=== PATIENT | female | born 1980 | race Caucasian/White ===

== ENCOUNTER 2016-12-05 06:09 | Day surgery (SDC) | payer OTHER ==
--- NOTE | 2016-11-18 15:54 | GHP ---
[f rep st] PREOP HISTORY AND PHYSICAL DATE OF ADMISSION: 12/05/2016 DATE OF SURGERY: December 05, 2016 at 7:15 a.m. SURGERY TO BE PERFORMED: Laparoscopic left ovarian cystectomy, possible oophorectomy. PREOPERATIVE DIAGNOSIS: Complex left ovarian cyst likely dermoid tumor. HISTORY OF PRESENT ILLNESS: Patient is a 36-year-old, 0, who originally presented in [facility] of 2016 to discuss an 8 month history of infertility. During an infertility workup she had no co mplaints of pain or problems. She had an average cycle that ranged from 23-32 days, average of 26 d ays, had an LH surge on day 15 and had a basic workup that was negative. We reviewed pros and cons, and after basic laboratory workup decided to proceed with Clomid. On ultrasound pre treatment, she was diagnosed with a large adnexal mass. In her left adnexa, there was a large mass that looked to have linear echogenic areas and was heterogeneous in appearance. It measured 8.1 x 6.4 x 8.0 cm, w as difficult to identify any normal ovarian tissue around the mass. The rest of her pelvic ultrasoun d was normal. Her uterus is retroflexed and normal. Right ovary had follicles. There was some sma ll amount of free fluid in the cul-de-sac. Patient reports feeling a mild pressure on the left side, and in her pelvis now that she is aware th at the cyst is there but had no complaints prior to diagnosis. Patient did not conceive in the osman h that she was trying and so we discussed the pros and cons of continuing fertility treatments and a possible with this large ovarian cyst and increased risk of ovarian torsion with the alan ges of just due to the size of the cyst and so I recommended removal prior to more courses and attempted fertility treatments and she is in agreement. PAST OBSTETRICAL HISTORY: Patient has no past obstetrical history. She has never been . GYNECOLOGICAL PROBLEMS: She has no significant gynecological problems except the now known dermoid tumor. She had menarche at age 12. She has an average cycle of 26 days, 5 days of moderate flow with moder ate cramps and a normal luteal phase. She has no history of any abnormal Paps. Last Pap was done w [facility] in September 2016 and it was normal. She has no history of any STDs. PAST MEDICAL HISTORY: Her medical problems include migraines which are rare, approximately a couple times a year, not menstrual related. PAST SURGICAL HISTORY: She has no surgical history. ALLERGIES: No known drug allergies. MEDICATIONS: vitamin and DHA. SOCIAL HISTORY: She denies tobacco, alcohol, 1-2 times a week. No recreational drug use. 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 Has been 7 years. Has moderate caffeine use, [facility] diet and exercise daily. FAMILY HISTORY: Significant for mother who had breast cancer diagnosed at age 62. She is now healt at age 67. Maternal grandfather had bladder cancer. Maternal uncle had pancreatic cancer. Mate rnal grandmother had uterine cancer and melanoma. There is high cholesterol in her family. Her mot her was recently diagnosed with a dermoid tumor as well and underwent a bilateral salpingo-oophorect selena and her pathology was benign. OBJECTIVE: VITAL SIGNS: Her height is 5 feet 9-1/2 inches, weight is 153, blood pressure is 102/62 . GENERAL: She is a well-developed, thin, white female, in no acute distress. LUNGS: Clear to au scultation bilaterally. HEART: Regular rate and rhythm. No murmurs. ABDOMEN: Soft, nontender, n ormal bowel sounds. Mass is not palpated. PELVIC: On pelvic exam, normal external genitalia. Nor mal nulliparous cervix. Uterus is retroflexed and there is a fullness and mass posterior to the lef t of the uterus. Nontender. ASSESSMENT AND PLAN: 36-year-old, 0, with a complex left ovarian mass which is heterogeneou s in consistency and likely to be a dermoid tumor by appearance. She was consented for a laparoscop ic left ovarian cystectomy, possible left oophorectomy. She understood the risks and benefits of th e procedure. The risks including bleeding, infection, damage to organs, uterus, tubes, ovaries, bow el, bladder, nerves, blood vessels, ureters, need for open procedure, need for an oophorectomy or ne ed for additional procedures. She understood these risks and benefits, and agreed to proceed. /[id number]/MODL
[~2016-12-05 06:09] MED LIST: ceFAZolin 2 GM/DEXTROSE 100 ML IV ONE
[2016-12-05] MEDS ORDERED: LIDOCAINE 1% 2 ML INJ ONE (07:00)
[2016-12-05] MEDS ORDERED: LR 1,000 ML IV ONE (07:04)
[2016-12-05] MEDS ORDERED: LIDOCAINE 1% 5 ML SDV ID PRN (07:05)
[2016-12-05] MEDS ORDERED: BUPIVACAINE/EPI 0.5% 30 ML SDV ONE (07:07)
[2016-12-05] MEDS ORDERED: SILVER NITRATE APPLICATOR 1 APPL TP ONE (07:07)
[2016-12-05] MEDS ORDERED: PROPOFOL 200 MG/20 ML VIAL ONE ×3 (07:08→08:43)
[2016-12-05] MEDS ORDERED: fentaNYL 250 MCG/5 ML INJ ONE (07:08)
[2016-12-05] MEDS ORDERED: ROCURONIUM 50 MG/5 ML VIAL ONE (07:08)
[2016-12-05] MEDS ORDERED: SCOPOLAMINE HYDROBROMIDE 1.5 MG PATCH TD ONE (07:22)
[2016-12-05] MEDS ORDERED: MIDAZOLAM 2 MG/2 ML VIAL ONE ×2 (07:23→07:36)
[2016-12-05 07:30] LABS: % IMMATURE GRANULYOCYTES 0.2 % (0.0-1.1); ABSOLUTE IMMATURE GRANULOCYTES 0.01 10^3/uL (0.00-0.10); ADD DIFF? NO; ADD MORPH? NO; ADD SCAN? NO; ATYPICAL LYMPHOCYTE FLAG 0 (0-99); FRAGMENT RBC FLAG 0 (0-99); HEMOGLOBIN 14.4 g/dL (12.6-16.3); LEFT SHIFT FLG 0 (0-99); LIPEMIA HEMOLYSIS FLAG 80 (0-99); MEAN CELL HEMOGLOBIN 30.6 pg (27.9-34.1); MEAN CELL HEMOGLOBIN CONCENTR. 33.5 g/dL (32.4-36.7); MEAN CELL VOLUME 91.5 fL (81.5-99.8); MEAN PLATELET VOLUME 10.7 fL (8.7-11.7); PLATELET CLUMPS FLAG 10 (0-99); PLATELET COUNT 239 10^3/uL (150-400); RED CELL DISTRIBUTION WIDTH 11.8 % (11.5-15.2)
[2016-12-05] MEDS ORDERED: DEXAMETHASONE 4 MG/ML VIAL ONE ×2 (07:34)
[2016-12-05] MEDS ORDERED: PHENYLEPHRINE HCL 100 MCG/ML SYR ONE (07:46)
[2016-12-05] MEDS ORDERED: epHEDrine SULFATE 10 MG/ML SYR ONE (08:03)
[2016-12-05] MEDS ORDERED: ONDANSETRON 4 MG/2 ML VIAL ONE (09:10)
[2016-12-05] MEDS ORDERED: KETOROLAC 30 MG/1 ML SDV ONE (10:08)
--- NOTE | 2016-12-05 10:50 | GOP ---
[f rep st] OPERATIVE REPORT DATE OF OPERATION: 12/05/2016 SURGEON: Rocio Levin MD COMPUTER NETWORK ENGINEER: Zoey Jasso MD ANESTHESIA: General anesthesia. ANESTHESIOLOGIST: González Tucker MD. PREOPERATIVE DIAGNOSIS: Complex left ovarian cyst, likely dermoid cyst. POSTOPERATIVE DIAGNOSIS: Complex left ovarian cyst, likely dermoid cyst. Right pelvic adhesions. PROCEDURE PERFORMED: Laparoscopic left ovarian cystectomy and lysis of adhesions. FINDINGS: SPECIMENS: Pathologic specimen was left ovarian dermoid cyst. ESTIMATED BLOOD LOSS: Less than 50 cc. INDICATIONS: The patient is a 36-year-old 0, who presented in July of 2016 complaining of an 8-month history of infertility. During the workup, she had an ultrasound that revealed an 8.1 x 6.4 x 8.0 cm echogenic large mass on her left ovary, presumed dermoid cyst. Due to the size of t he mass as well as the fact that she wanted to conceive and could have complications from the mass, especially in a future , the recommendation was to proceed with laparoscopic removal. The patient agreed to this and consented. She understood the risks and benefits, the risks including bl eeding, infection, damage to internal organs, uterus, tubes, ovaries, bowel, bladder, nerves, blood vessels, ureters, risk of needing to do an oophorectomy, risk of needing open procedures or addition al procedures. She understood these risks and benefits, and agreed to proceed. DESCRIPTION OF PROCEDURE: The patient was taken to the operating room, where she was placed under g eneral anesthesia without difficulty. She was prepped and draped in the dorsal lithotomy position, and a Salmon catheter was placed in her bladder. An exam under anesthesia revealed a large left adne xal mass and an anteverted, anteflexed uterus. No right adnexal masses. After a WHO time-out was p erformed, an open-sided speculum was placed in the vagina. Single-tooth tenaculum was used to grasp the anterior lip of the cervix. An acorn uterine manipulator was gently placed through the cervica l os and attached to the tenaculum. Attention was then turned to the abdominal portion of the proce dure. After injection of Marcaine, a 5 mm infraumbilical skin incision was made with a scalpel, and a Veress needle was placed in this incision. There was a good drop in peritoneal pressure upon ent ry in the abdominal cavity. A pneumoperitoneum was created with carbon dioxide gas. A 5 mm atrauma tic trocar was then placed through this incision, and the patient was placed in Trendelenburg. Visu alization of the pelvis was performed. There was a normal anteverted, anteflexed uterus, and a larg e left adnexal mass occupying the entire left ovary was visualized. Other than that, her anatomy wa s normal. After injection of Marcaine, a 5 mm skin incision was made in the left lower quadrant, an d a 5 mm atraumatic port was placed under direct visualization, and a 1 cm incision on the right and a 10 mm trocar was placed on that side. The pelvis was carefully inspected. The uterus was normal . The right ovary and tube were normal. The left tube was normal. The left ovary was occupied by the entire cyst. The cyst was reflected, and the ureter was clearly seen in the normal pelvic refle ction. The cyst was then brought above the uterus, and the uterus was placed in the pelvis to help stabilize the ovary for dissection. The monopolar scissors were then used to cauterize into the ova dano cortex and to gently sharply dissect the ovarian cortex from the cyst wall. Upon entry to the cyst wall, there was a copious amount of yellow sebaceous fluid and visualized black hair. The diss ection was then continued along the ovarian cortex until there was a clear demarcation between the o varian cortex and the cyst wall. The ovarian cortex was grasped, and the cyst wall was grasped, and with blunt and sharp dissection, the cyst was removed from the ovarian cyst wall with care to prese rve the infundibulopelvic ligament and a tubal segment on the left lateral side of the ovary. There was a firm mass in the cyst wall that was cauterized and removed with the cyst with the LigaSure. After the entire cyst was removed, it was placed in an EndoCatch bag and removed through the 1 cm po rt. Trocar was then reinserted, and the pelvis was copiously irrigated with warm normal saline to r emove all of the fatty tissue, and small bits of hair were removed under direct visualization until the pelvis was clear. There was a large amount of ovarian cortex left, which was hemostatic. Care was made to inspect the right ovary and tube, which were also hemostatic and normal. There were adh esions visualized toward the colon on the right side, and these were cauterized and cut with the Lig aSure, and good hemostasis was assured. The remainder of the pelvis was inspected, and the liver an d the pelvis were visualized and all found to be normal. The fascia was closed with 0 Vicryl after the trocar was removed on the right lower quadrant, and all the skin incisions were closed with 4-0 Monocryl. The uterine manipulator and tenaculum were removed, and there was hemostasis along the an terior lip of the cervix, and the Salmon catheter was removed in the PACU. The patient tolerated the procedure well. Sponge, lap, needle, and instrument counts were correct x3. The patient went to [facility] room in good condition. IV FLUIDS: 800 cc. URINE OUTPUT: 300 cc. /[id number]/MODL
[2016-12-05] MEDS ORDERED: HYDROCODONE/APAP 5/325 TAB ONE (11:44)
== END 2016-12-05 12:00 | disposition home health service (06) ==
LOC: FSGY 06:09
PROVIDERS: ATTEND Obstetrics & Gynecology
PROC: 0UT14ZZ Resection of Left Ovary, Percutaneous Endoscopic Approach (ICD-10-PCS; principal; 2016-12-05 07:15)
DX: D27.1 Benign neoplasm of left ovary (principal); N73.6 Female pelvic peritoneal adhesions (postinfective)
CPT/HCPCS: J0690; J1100; J1885; J2250; J2370; J2405; J2704; J3010

== ENCOUNTER → 2018-05-30 | Outpatient (CLI) | payer OTHER | LOC: FIMAGING 15:39 | PROVIDERS: ATTEND Obstetrics & Gynecology | DX: Z12.31 Encounter for screening mammogram for malignant neoplasm of breast (principal); Z80.3 Family history of malignant neoplasm of breast ==

== ENCOUNTER → 2018-09-25 | Outpatient (CLI) | payer OTHER | LOC: FIMAGING 14:09 | PROVIDERS: ATTEND Obstetrics & Gynecology | DX: O09.511 Supervision of elderly primigravida, first trimester (principal); O09.811 Supervision of pregnancy resulting from assisted reproductive technology, first trimester; Z3A.12 12 weeks gestation of pregnancy ==

== ENCOUNTER → 2018-11-08 | Outpatient (CLI) | payer OTHER | LOC: FIMAGING 07:16 | PROVIDERS: ATTEND Hospitalist | DX: O09.512 Supervision of elderly primigravida, second trimester (principal); O09.812 Supervision of pregnancy resulting from assisted reproductive technology, second trimester; Z3A.19 19 weeks gestation of pregnancy ==

== ENCOUNTER → 2018-11-29 | Outpatient (CLI) | payer OTHER | LOC: FIMAGING 08:00 | PROVIDERS: ATTEND Obstetrics & Gynecology | DX: O09.512 Supervision of elderly primigravida, second trimester (principal); O09.812 Supervision of pregnancy resulting from assisted reproductive technology, second trimester; Z3A.22 22 weeks gestation of pregnancy ==

== ENCOUNTER 2019-01-06 21:31 | Observation (INO) | payer OTHER | END 2019-01-06 23:08 | disposition home or self-care (01) | LOC: FLD 21:31 | PROVIDERS: ADMIT Obstetrics & Gynecology; ATTEND Obstetrics & Gynecology | DX: Z03.71 Encounter for suspected problem with amniotic cavity and membrane ruled out (principal); O09.513 Supervision of elderly primigravida, third trimester; O09.819 Supervision of pregnancy resulting from assisted reproductive technology, unspecified trimester; Z3A.27 27 weeks gestation of pregnancy | CPT/HCPCS: G0378 ==